=== PATIENT | female | born 1925 | race Caucasian/White ===

== ENCOUNTER → 2016-07-16 | Outpatient (CLI) | payer SELFPAY ==
[~2016-07-16] MED LIST: LORT5TAB PO; [UNRECOGNIZED DRUG - OTHER] PO
--- NOTE | 2016-07-16 16:40 | EKG ---
Date Performed: 07/16/2016 Time Performed: 10:25:26 PTAGE: 89 years EKG: Sinus rhythm . Normal ECG NO PREVIOUS TRACING DOCTOR: Jane Hill Interpretating Date/Time 07/16/2016 16:35:27
== END ==
LOC: HCAV 10:10
DX: Z00.00 Encounter for general adult medical examination without abnormal findings (principal)
CPT/HCPCS: 93005